=== PATIENT | female | born 1995 | race Caucasian/White ===

== ENCOUNTER 2016-12-09 18:44 | Emergency (ER) | payer BC ==
[~2016-12-09] VITALS: Ht 170.2 cm; Wt 67.2 kg
[2016-12-09 18:52] VITALS: TEMP 37.4; Ht 170.2 cm; Wt 67.2 kg
[2016-12-09] MEDS ORDERED: XYLOCAINE 1%/SOD BICARB 20 ML VIAL INFIL ONE (19:15)
[2016-12-09] MEDS ORDERED: BCPILLS PO (19:15)
[2016-12-09] MEDS ORDERED: IBUP-1050 PO (19:16)
--- NOTE | 2016-12-09 19:50 | EMERGENCY ROOM VISIT NOTE ---
ED Visit Note First contact with patient: 18:55 CHIEF COMPLAINT: Left thumb laceration HISTORY OF PRESENT ILLNESS: This 21-year-old female presents the ER with chief complaint of left thumb laceration. The patient states that she was opening a can of tomatoes and accidentally cut her left thumb on the edge of the can. The patient's tetanus is up-to-date. The patient is right-hand dominant. REVIEW OF SYSTEMS: 6 system review was performed and was negative unless stated otherwise in history of present illness. PMH: The patient is healthy; tonsillectomy SOCIAL HISTORY: Patient lives with roommates. The patient denies tobacco use but admits to occasional alcohol use. PHYSICAL EXAM: Vital Signs: Were reviewed Reviewed Nurse's notes. GEN.: 21-year -old female appears in no acute distress. MENTAL Status: Alert and oriented 3. LEFT THUMB: There is a 2 cm long laceration on the palmar aspect the thumb. The edges gape apart with traction. There is no foreign material in the wound and it looks clean. There is no bleeding. No deep structures such as tendons or nerves are seen in the base of the wound. Extension of the finger is full and strong. EMERGENCY DEPARTMENT COURSE: The patient was evaluated. Wound Repair: Was performed by the PA student under my direct supervision. Complexity: Basic. Verbal consent was obtained after the risks and benefits were explained, including but not limited to bleeding, scarring, infection, pain, and bone/joint /nerve damage. The skin was prepped with betadine and a sterile field set. The wound was anesthetized with 2.0 ml of 1% buffered lidocaine. With direct pressure the bleeding subsided. Copious irrigation was performed using sterile saline. The wound was explored for foreign bodies and none found. Debridement was not performed. The wound edges were approximated using 5-0 Ethilon with 6 simple interrupted sutures. Hemostasis and excellent approximation was achieved. Antibacterial ointment and a sterile dressing applied. Detailed wound care instructions and signs and symptoms of infection reviewed with the patient. No complications and the patient tolerated the procedure well. DIAGNOSIS: 2 cm left thumb laceration DISCHARGE INSTRUCTIONS & TREATMENT: Keep wound clean and dry. No water on the area for 12-24 hrs then no soaking until sutures removed. Do not allow any crusting or dried blood to accumulate on sutures. If this occurs, use a 1:1 solution of hydrogen peroxide/water on a Q-tip to clean the wound. Use an antibiotic ointment for 3-4 days, then let wound dry. Suture removal in 8-10 days. Follow up sooner for any signs of infection (increasing redness, swelling , drainage). Ice and elevate for swelling and pain. Tylenol 650 mg every 6 hrs for pain. Problem List Surgical Problems: (1) Hx of tonsillectomy Status: Resolved Current/Historical Medications Scheduled Control Pills ( Control Pills), 1 TAB PO DAILY Ibuprofen (Advil), 200-600 MG PO Q4H Allergies Coded Allergies: No Known Allergies (Unverified , 12/09/16) Vital Signs Date Time Temp Pulse Resp B/P Pulse Ox O2 Delivery O2 Flow Rate FiO2 12/09/16 18:52 37.4 116 18 131/65 97 Room Air Departure Information Referrals No Doctor, Assigned (PCP) Patient Instructions [facility]
[2016-12-09 19:57] VITALS: BP 116/70; PULSE 86; O2SAT 98
== END 2016-12-09 20:05 | disposition home or self-care (01) ==
LOC: C.EDB 18:46 → C.EDD 20:05
DX: S61.012A Laceration without foreign body of left thumb without damage to nail, initial encounter (principal); W45.8XXA Other foreign body or object entering through skin, initial encounter; Y93.G1 Activity, food preparation and clean up; Z79.3 Long term (current) use of hormonal contraceptives

== ENCOUNTER 2016-12-19 12:23 | Emergency (ER) | payer BC ==
[~2016-12-19] VITALS: Ht 170.2 cm; Wt 66.4 kg
[~2016-12-19 12:23] MED LIST: BCPILLS PO; IBUP-1050 PO
[2016-12-19 12:27] VITALS: BP 115/69; PULSE 92; TEMP 36.8; O2SAT 97; Ht 170.2 cm; Wt 66.4 kg
--- NOTE | 2016-12-19 12:49 | EMERGENCY ROOM VISIT NOTE ---
History First contact with patient: 12:39 Chief Complaint: SUTURE/STAPLE REMOVAL Stated Complaint: SUTURE REMOVAL Nursing Triage Summary: placed 10 days ago here for removal History of Present Illness The patient is a 21 year old female who presents to the Emergency Room for suture removal from a left thumb laceration that was repaired in the facility 10 days ago. The patient denies any wound complications. Review of Systems Noncontributory Past Medical/Surgical History Medical Problems: (1) No Known Active Medical Problems Surgical Problems: (1) Hx of tonsillectomy Social History Smoking Status: Never Smoker Current/Historical Medications Scheduled Control Pills ( Control Pills), 1 TAB PO DAILY Ibuprofen (Advil), 200-600 MG PO Q4H Allergies Coded Allergies: No Known Allergies (Unverified , 12/19/16) Physical Exam Vital Signs Date Time Temp Pulse Resp B/P Pulse Ox O2 Delivery O2 Flow Rate FiO2 12/19/16 12:27 36.8 92 18 115/69 97 Room Air Physical Exam MUSCULOSKELETAL: Examination of the left thumb digital pad shows a well-healed laceration without erythema, fluctuance or diastases. All sutures were removed without any complications. Medical Decision & Procedures ED Course The patient was provided additional verbal wound care instructions. Follow-up with [facility] as needed. The patient was happy with plan of care, and denied any pain at the time of discharge. Impression Primary Impression: Encounter for removal of sutures Additional Impression: Laceration of left thumb Departure Information Referrals No Doctor, Assigned (PCP) Patient Instructions [facility] Problem Qualifiers
== END 2016-12-19 12:56 | disposition home or self-care (01) ==
LOC: C.EDB 12:23 → C.EDD 12:56
DX: S61.012D Laceration without foreign body of left thumb without damage to nail, subsequent encounter (principal); X58.XXXD Exposure to other specified factors, subsequent encounter